=== PATIENT | female | born 1990 | race Caucasian/White ===

== ENCOUNTER 2025-01-02 15:31 | Emergency (ER) | payer OTHER, SELFPAY ==
[2025-01-02 15:38] VITALS: BP 166/114
[2025-01-02 16:21] VITALS: BMI 29.1
[2025-01-02 16:22] VITALS: BP 151/101
--- NOTE | 2025-01-02 16:59 | ED.GENMED ---
History of Present Illness
General
Chief Complaint: Headache
Source: patient
Exam Limitations: none
Time Seen by Provider: 01/02/25 16:24
History of Present Illness
History of Present Illness:
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
presents with elevated blood pressure readings over the past couple days. She states her blood pressure is typically 145/95. She was getting values of 160/110 despite taking her regular medicines. After noticing her blood pressure was elevated,
she was developing a headache which does feel like a migraine. She has had migraines in the past. She had tried her rescue medications however these did not help. She also states that she never feels this way when her blood pressure is just above
her normal baseline. She is never been here before. Most recent surgery was at [facility] but typically seeks care at [facility]. She denies a fever. No current vision change. No other complaint
Phy Exam
Physical Exam
Physical Exam:
General: Well-appearing nontoxic female no acute respiratory distress
HEENT: Normocephalic atraumatic
Pupils equal round reactive to light mucosa moist
Heart: Regular rate and rhythm
Lungs: Clear no wheeze
Neurologic exam: Alert and oriented conversing appropriately no facial asymmetry good muscle tone
Course
Orders/Labs/Results
Orders:
Orders
01/02/25 16:56
0.9% Sodium Chloride 1000 ml [Nss] 1,000 ml IV BOLUS
Diphenhydramine [Benadryl] 25 mg IV NOW STA
Ondansetron Injectable [Zofran] 4 mg IV NOW STA
01/02/25 16:57
Electrocardiogram (*1) Urgent
Reason for Study: Fatigue / Weakness
CT Head W/o Iv Contrast Urgent
Comment:
Reason For Exam: headache
EKG- Treatment ONCE
CR Chest - 2 Views Urgent
Comment:
Reason For Exam: sob, PICC placement
01/02/25 17:16
Complete Blood Count/With Diff Urgent
Comprehensive Metabolic Panel Urgent
Magnesium Urgent
Abnormal Lab Results
01/02/25
17:16
Hgb 11.0 L g/dL
(12.0-16.0)
Hct 34.0 L %
(37.0-47.0)
MCH 26.2 L pg
(27.0-31.0)
MCHC 32.4 L g/dL
(33.0-37.0)
RDW 15.5 H %
(11.5-14.5)
Absolute Neuts (auto) 8.3 H 10^3/uL
(1.4-6.5)
Neutrophils % 78.2 H %
(42.2-75.2)
Lymphocytes % 14.3 L %
(20.5-51.1)
Potassium 5.2 H mmol/L
(3.5-5.1)
Chloride 108 H mmol/L
(98-107)
Carbon Dioxide 20 L mmol/L
(22-30)
BUN 30 H mg/dl
(7-17)
AST 53 H U/L
(14-36)
ALT 51 H U/L
(0-35)
01/02/25 17:16
01/02/25 17:16
Vital Signs
Initial and Last Documented VS:
Initial Vital Signs
Temp Pulse Resp BP Pulse Ox
98.6 F 106 16 166/114 98
01/02/25 15:38 01/02/25 15:38 01/02/25 15:38 01/02/25 15:38 01/02/25 15:38
Last Documented Vital Signs
Temp Pulse Resp BP Pulse Ox
98.6 F 58 17 160/91 99
01/02/25 15:38 01/02/25 19:20 01/02/25 19:20 01/02/25 19:20 01/02/25 19:20
MDM/Problems Addressed
Differential Diagnosis Includes:
Patient with elevated blood pressure readings and overall unwell sensation including headache fatigue and shortness of breath. Vital signs are stable. She is not hypoxic. She is anticoagulated. Would not suspect PE given anticoagulated state.
Order EKG labs fluids Zofran Benadryl as well as CT of the head and x-ray of the chest.
*Pulse Oximetry
SaO2: 98
Oxygen Mode of Delivery: Room air
Patient hypoxic: no
*Critical Care Note
Total Time (30-74mins, 75-104mins- exclusive of procedures): Not Applicable
Update Note
Update Note:
Workup here without significant findings. Potassium is 5.2. Subtle elevation in transaminases. BUN was 30. She was hydrated. Patient reevaluated and is feeling improved. Most recent blood pressure check 160/90. Chest x-ray was clear. No
indication for admission. She has appoint with provider tomorrow. Patient reassured. Stable for discharge
ED Attending Note
-
Portions of this chart may have been created with voice recognition software.� Occasional wrong word or��sound alike� substitutions may have occurred due to the inherent limitations of voice recognition software.
Discharge Plan
Departure
Patient Disposition: Home (Routine Discharge)
Date of Disposition: 01/02/25
Time of Disposition: 19:52
Patient with high blood pressure during this ER visit?: No
Discharge Problem:
Hypertension
Instructions: Headache, Adult (DC)
Referrals:
UNKNOWN - PT DOES,NOT KNOW [Family Provider]
Activity Restrictions/Additional Instructions:
Please return here for worsening symptoms otherwise follow-up with your doctor as planned
Interventions
Interventions:
*Risk Screen - Suicide Last Done: 01/02/25 15:38
*General Assessment Last Done: 01/02/25 15:38
*Neglect/Abuse Screening Last Done: 01/02/25 15:38
*ED- Fall Risk Assessment Last Done: 01/02/25 16:21
*ED COVID-19 Vaccine History Last Done: 01/02/25 16:21
ED- Neurological Assessment Last Done: 01/02/25 16:23
Discharge Date and Time
Print Language: GUINEAN
[2025-01-02 17:22] LABS: Hematocrit 34.0 % (37.0-47.0); Hemoglobin 11.0 g/dL (12.0-16.0); Mean Corp Hgb Conc. 32.4 g/dL (33.0-37.0); Mean Corpuscular Volume 81.0 fL (81.0-99.0); Nucleated Red Blood Cells % 0 %; Platelet Count 268 10^3/uL (130-400); Red Cell Dist. Width 15.5 % (11.5-14.5)
[2025-01-02 17:40] LABS: ALT (SGPT) 51 U/L (0-35); AST (SGOT) 53 U/L (14-36); Albumin 4.6 g/dl (3.5-5.0); Alkaline Phosphatase 86 U/L (38-126); Blood Urea Nitrogen 30 mg/dl (7-17); Calcium 9.6 mg/dl (8.4-10.2); Carbon Dioxide 20 mmol/L (22-30); Chloride 108 mmol/L (98-107); Estimated Creatinine Clearance 96 ml/min; Glucose 93 mg/dl (70-99); Magnesium 2.1 mg/dl (1.6-2.3); Potassium 5.2 mmol/L (3.5-5.1); Sodium 138 mmol/L (135-145); Total Protein 7.9 g/dl (6.3-8.2); eGFR > 60.00
[2025-01-02] MEDS: NSS 1000 IV (18:05)
[2025-01-02] MEDS: BENADRYL 25 MG IV (18:08)
[2025-01-02] MEDS: ZOFRAN 4 MG IV (18:08)
[2025-01-02 18:39] VITALS: BP 147/107
[2025-01-02 19:20] VITALS: BP 160/91
== END 2025-01-02 20:17 | disposition home or self-care (01) ==
LOC: EMR 15:31
PROVIDERS: Physician Assistant; EMERGENCY PHYSICIAN Student in an Organized Health Care Education/Training Program
DX: I10 Essential (primary) hypertension (principal); R51.9 Headache, unspecified; K50.90 Crohn's disease, unspecified, without complications; N31.9 Neuromuscular dysfunction of bladder, unspecified; Z45.2 Encounter for adjustment and management of vascular access device; Z79.01 Long term (current) use of anticoagulants
CPT/HCPCS: 99284; 96374; 96375; 96361; 70450; 71046; 80053; 83735; 85025; 93005